=== PATIENT | female | born 2005 | race Caucasian/White ===

== ENCOUNTER 2025-01-11 13:44 | Emergency (ER) | payer OTHER, SELFPAY ==
[2025-01-11 13:45] VITALS: BP 146/99
--- NOTE | 2025-01-11 14:24 | EDRN ---
Patient ambulated to the room and changed into blue scrubs
--- NOTE | 2025-01-11 18:53 | ED.GENMED ---
History of Present Illness
General
Chief Complaint: Crisis Evaluation
Source: patient
Exam Limitations: none
Time Seen by Provider: 01/11/25 14:07
Nursing documentation reviewed up to this point in time: agreed with
History of Present Illness
History of Present Illness:
Patient with history of depression and anxiety, currently taking Wellbutrin, presents to ED secondary to worsening anxiety sensation over the past 1 month. Denies suicidal or homicidal ideation. Denies recent illness. Denies recent change in
medications or diet. Patient states that she has been dealing with anxiety for a long period of time, but has worsened recently, in terms of racing thoughts and restlessness. Patient unable to pinpoint to any inciting events.
Review of Systems
Review of Systems
Allergies reviewed?: Yes
All Other Systems: ROS reviewed and negative except as documented in HPI and ROS
Constitutional: Reports no symptoms
Respiratory: Reports no symptoms
Cardiac: Reports no symptoms
ABD/GI: Reports no symptoms
Musculoskeletal: Reports no symptoms
Skin: Reports no symptoms
Neurological: Reports no symptoms
Phy Exam
Physical Exam
Physical Exam:
Physical Exam
General: no apparent distress, not acutely ill. afebrile.
Head: nc/at. eomi
Neck: supple. no meningeal signs.
Heart: s1/s2 regular rate and rhythm
Lungs: no acute respiratory distress. clear bilaterally
Abdomen: normal bowel sounds. not tender.
Neuro: alert and oriented x 3. no focal neurological deficits
Skin: no rash
Psychiatric: well kept. interactive and cooperative
Extremities: no edema. no calf tenderness.
Course
Orders/Labs/Results
Orders:
Orders
01/11/25 14:17
Crisis Consult Urgent
Reason for Consult: suicidal ideation
Vital Signs
Initial and Last Documented VS:
Initial Vital Signs
Temp Pulse Resp BP Pulse Ox
97.9 F 90 16 146/99 99
01/11/25 13:45 01/11/25 13:45 01/11/25 13:45 01/11/25 13:45 01/11/25 13:45
Last Documented Vital Signs
Temp Pulse Resp BP Pulse Ox
97.9 F 90 16 146/99 99
01/11/25 13:45 01/11/25 13:45 01/11/25 13:45 01/11/25 13:45 01/11/25 13:45
MDM/Problems Addressed
MDM/Problems Addressed:
Patient evaluated in ED by telepsychiatry who recommends outpatient evaluation/treatment. However, short-term, does recommend hydroxyzine 25 mg every 8 hours as needed. Patient feels comfortable going home with that treatment plan. Patient also
provided with outpatient resources by [facility] wine cellar worker prior to discharge.
*Critical Care Note
Total Time (30-74mins, 75-104mins- exclusive of procedures): Not Applicable
ED Attending Note
-
Portions of this chart may have been created with voice recognition software.� Occasional wrong word or��sound alike� substitutions may have occurred due to the inherent limitations of voice recognition software.
Discharge Plan
Departure
Patient Disposition: Home (Routine Discharge)
Date of Disposition: 01/11/25
Time of Disposition: 18:54
Patient with high blood pressure during this ER visit?: Yes
Discharge Problem:
Anxiety
Instructions: Anxiety, Adult (DC)
Prescriptions:
New
hydroxyzine HCl 25 mg tablet
25 mg PO TID PRN (Reason: anxiety) Qty: 30 0RF
Referrals:
Dolly Pereira MD [Family Provider]
Activity Restrictions/Additional Instructions:
As discussed, please follow-up with your primary care physician as well as provided outpatient resources for further evaluation and treatment. Your prescription has been sent electronically to [facility] pharmacy in [place].
Interventions
Interventions:
*Risk Screen - Suicide Last Done: 01/11/25 13:45
*General Assessment Last Done: 01/11/25 13:45
*Neglect/Abuse Screening Last Done: 01/11/25 13:45
*ED- Fall Risk Assessment Last Done: 01/11/25 14:44
*ED COVID-19 Vaccine History Last Done: 01/11/25 14:44
*Nursing Disposition Last Done: 01/11/25 18:58
ED-Psychological Assessment Last Done: 01/11/25 14:44
Discharge Date and Time
Discharge Date/Time: 01/11/25 18:59
Print Language: NAMIBIAN
== END 2025-01-11 18:59 | disposition home or self-care (01) ==
LOC: EMR 13:44
PROVIDERS: EMERGENCY PHYSICIAN Emergency Medicine; FAMILY PHYSICIAN Family Medicine
DX: F41.9 Anxiety disorder, unspecified (principal); F32.A Depression, unspecified; Z79.899 Other long term (current) drug therapy
CPT/HCPCS: 99283